=== PATIENT | male | born 1995 | race Caucasian/White ===

== ENCOUNTER 2016-08-10 14:43 | Emergency (ER) | payer OTHER ==
[2016-08-10] MEDS ORDERED: PANTOPRAZOLE 40 MG TABLET PO STA (16:04)
[2016-08-10] MEDS ORDERED: PANTOPRAZOLE 40 MG TABLET ONE (16:13)
[2016-08-10] MEDS ORDERED: ONDANSETRON ODT 4 MG TABLET TL STA (16:15)
[2016-08-10] MEDS ORDERED: ONDANSETRON ODT 4 MG TABLET ONE (16:16)
== END 2016-08-10 16:45 | disposition home or self-care (01) ==
DX: R10.13 Epigastric pain (principal); Z87.891 Personal history of nicotine dependence
CPT/HCPCS: 36415; 80053; 81003; 83690; 85025; 99283; A9270; Q0162